=== PATIENT | female | born 1990 | race Caucasian/White ===

== ENCOUNTER 2017-08-30 22:52 | Emergency (ER) | payer BC, OTHER ==
[~2017-08-30] VITALS: Ht 167.6 cm; Wt 57.0 kg
[2017-08-31] MEDS ORDERED: IBUPROFEN 600MG TABLET PO STA (00:17)
[2017-08-31] MEDS ORDERED: ACETAMINOPHEN 500MG TABLET PO STA (00:17)
[2017-08-31 03:25] VITALS: BP 124/89
== END 2017-08-31 03:42 | disposition home or self-care (01) ==
LOC: ER 22:53
DX: S50.811A Abrasion of right forearm, initial encounter (principal); R55 Syncope and collapse; M54.2 Cervicalgia; M79.645 Pain in left finger(s); V49.49XA Driver injured in collision with other motor vehicles in traffic accident, initial encounter; Y93.89 Activity, other specified; Y92.488 Other paved roadways as the place of occurrence of the external cause
CPT/HCPCS: 29125; 70450; 71010; 72125; 73090; 73130; 81025; 99284; Z7610